=== PATIENT | female | born 1995 | race Caucasian/White ===

== ENCOUNTER 2022-04-20 06:44 | Inpatient (IN) | payer MEDICAID ==
[2022-04-20] MEDS ORDERED: Scopolamine 1.5 MG Transdermal Patch TOP SCH (07:30)
[2022-04-20] MEDS ORDERED: Dextrose 5%-Lactated Ringers 1,000 ML IV SCH (07:30)
[2022-04-20] MEDS ORDERED: Celecoxib 200 MG Cap PO ONE (07:30)
[2022-04-20] MEDS ORDERED: Acetaminophen 500 MG Tab PO ONE (07:30)
[2022-04-20] MEDS ORDERED: Propofol 200 MG/20 ML SDV ONE (07:36)
[2022-04-20] MEDS ORDERED: Succinylcholine 200 MG/10 ML MDV ONE (07:36)
[2022-04-20] MEDS ORDERED: Glycopyrrolate 0.2 MG/ML 5 ML MDV ONE (07:36)
[2022-04-20] MEDS ORDERED: Rocuronium 50 MG/5 ML Vial ONE ×2 (07:36→10:02)
[2022-04-20] MEDS ORDERED: Ondansetron 4 MG/2 ML SDV ONE (07:36)
[2022-04-20] MEDS ORDERED: Dexamethasone 4 MG/ML SDV ONE (07:36)
[2022-04-20] MEDS ORDERED: Neostigmine Methylsulfate 1 MG/ML 5 ML Syringe ONE (07:36)
[2022-04-20 07:38] LABS: ESTIMATED GFR 89 mL/min (>60)
[2022-04-20] MEDS ORDERED: cefOXitin 2 GM in Sodium Chloride 0.9% 50 ML IV ONE (08:30)
[2022-04-20] MEDS ORDERED: Ketamine 500 MG/5 ML MDV IV SCH (08:45)
[2022-04-20] MEDS ORDERED: Ketamine 19 MG in Sodium Chloride 0.9% 19.81 ML IV SCH (08:45)
[2022-04-20] MEDS ORDERED: cefOXitin 2 GM Vial ONE (09:33)
[2022-04-20] MEDS ORDERED: Bupivacaine 0.5%/EPINEPHrine 1:200,000 50 ML MDV ONE (09:33)
[2022-04-20] MEDS ORDERED: fentaNYL 250 MCG/5 ML SDV ONE (10:02)
[2022-04-20] MEDS ORDERED: Cyclobenzaprine 10 MG Tab PO PRN (13:35)
[2022-04-20] MEDS ORDERED: Metoclopramide 10 MG/2 ML SDV IVPUSH PRN (13:45)
[2022-04-20] MEDS ORDERED: diphenhydrAMINE 50 MG/ML SDV IVPUSH PRN (13:45)
[2022-04-20] MEDS ORDERED: Ondansetron 4 MG/2 ML SDV IVPUSH PRN (13:45)
[2022-04-20] MEDS ORDERED: HYDROmorphone 0.5 MG/0.5 ML Syringe IVPUSH PRN (13:45)
[2022-04-20] MEDS ORDERED: traMADol 50 MG Tab PO PRN (13:45)
[2022-04-20] MEDS ORDERED: Labetalol 20 MG/4 ML Syringe IVPUSH PRN (13:45)
[2022-04-20] MEDS ORDERED: Acetaminophen 500 MG Tab PO PRN (13:45)
[2022-04-20] MEDS ORDERED: HYDROmorphone 1 MG/ML Syringe IV PRN (13:45)
[2022-04-20] MEDS ORDERED: Albuterol/Ipratropium 3.0-0.5 MG/3 ML Neb Soln INH PRN (13:45)
[2022-04-20] MEDS: Dextrose 5%-Lactated Ringers 1,000 ML IV SCH ×2 (14:04→22:19)
[2022-04-20] MEDS: hydrOXYzine HCL 100 MG/2 ML SDV IM PRN (14:09)
[2022-04-20] MEDS: Albuterol/Ipratropium 3.0-0.5 MG/3 ML Neb Soln INH SCH ×2 (14:15→20:26)
[2022-04-20] MEDS: Acetaminophen 500 MG Tab PO SCH ×2 (14:28→21:18)
[2022-04-20] MEDS ORDERED: MVI, Adult with Vitamin K 10 ML, Thiamine 200 MG, Zinc/Copper/Manganese/Selenium 1 ML i... IV SCH ×4 (16:00)
[2022-04-20] MEDS ORDERED: Pantoprazole 40 MG Vial IVPUSH SCH (16:00)
[2022-04-20] MEDS: cefOXitin 2 GM in Sodium Chloride 0.9% 50 ML IV SCH ×2 (16:27→22:19)
[2022-04-20] MEDS: Heparin Sodium 5,000 Units/ML Vial SUBCUT SCH (17:40)
[2022-04-20] MEDS: oxyCODONE 5 MG Tab PO PRN (19:41)
[2022-04-21] MEDS: hydrOXYzine HCL 100 MG/2 ML SDV IM PRN (01:01)
[2022-04-21] MEDS ORDERED: Iopamidol 612 MG/ML 50 ML SDV PO STA (01:10)
[2022-04-21] MEDS: oxyCODONE 5 MG Tab PO PRN ×3 (01:42→20:01)
[2022-04-21] MEDS: cefOXitin 2 GM in Sodium Chloride 0.9% 50 ML IV SCH ×4 (04:37→22:40)
[2022-04-21] MEDS: Dextrose 5%-Lactated Ringers 1,000 ML IV SCH ×2 (04:41→13:51)
[2022-04-21] MEDS: Acetaminophen 500 MG Tab PO SCH ×3 (06:10→22:40)
[2022-04-21] MEDS: Heparin Sodium 5,000 Units/ML Vial SUBCUT SCH ×2 (06:10→18:18)
[2022-04-21] MEDS: Albuterol/Ipratropium 3.0-0.5 MG/3 ML Neb Soln INH SCH ×4 (07:23→20:03)
[2022-04-21] MEDS ORDERED: hydrOXYzine HCl 25 MG Tab PO PRN (07:44)
[2022-04-21] MEDS ORDERED: Ondansetron 4 MG Tab.DIS PO PRN (07:44)
[2022-04-21] MEDS: Celecoxib 200 MG Cap PO SCH ×2 (09:22→20:03)
[2022-04-21] MEDS: SCOPOLAMINE PATCH CHECK TOP SCH (09:22)
[2022-04-21] MEDS: Citalopram 20 MG Tab PO SCH (09:22)
[2022-04-21] MEDS ORDERED: MVI, Adult with Vitamin K 10 ML, Thiamine 200 MG, Zinc/Copper/Manganese/Selenium 1 ML i... IV SCH ×4 (16:00)
[2022-04-21] MEDS ORDERED: Pantoprazole 40 MG Delayed-Release Granules 1 Packet PO SCH (16:30)
[2022-04-22] MEDS: Dextrose 5%-Lactated Ringers 1,000 ML IV SCH (03:07)
[2022-04-22] MEDS: Heparin Sodium 5,000 Units/ML Vial SUBCUT SCH (06:02)
[2022-04-22] MEDS: Acetaminophen 500 MG Tab PO SCH (06:04)
[2022-04-22] MEDS: Albuterol/Ipratropium 3.0-0.5 MG/3 ML Neb Soln INH SCH (06:56)
[2022-04-22] MEDS ORDERED: Magnesium Hydroxide 400 MG/5 ML Susp 30 ML Cup PO PRN (07:14)
[2022-04-22] MEDS: Celecoxib 200 MG Cap PO SCH (08:21)
[2022-04-22] MEDS: Citalopram 20 MG Tab PO SCH (08:26)
[2022-04-22] MEDS: SCOPOLAMINE PATCH CHECK TOP SCH (08:47)
[2022-04-22] MEDS ORDERED: Cyanocobalamin (Vitamin B12) 1,000 MCG/ML SDV IM ONE (09:00)
== END 2022-04-22 09:50 | disposition home or self-care (01) | DRG 621 ==
LOC: JP.SDSSCHI 06:44 → JP.MS 12:00
PROVIDERS: ADMIT Surgery; ATTEND Surgery
PROC: 0D164ZA Bypass Stomach to Jejunum, Percutaneous Endoscopic Approach (ICD-10-PCS; principal; 2022-04-20)
PROC: 0FB24ZX Excision of Left Lobe Liver, Percutaneous Endoscopic Approach, Diagnostic (ICD-10-PCS; 2022-04-20)
PROC: 0BQT4ZZ Repair Diaphragm, Percutaneous Endoscopic Approach (ICD-10-PCS; 2022-04-20)
PROC: 0DB64ZZ Excision of Stomach, Percutaneous Endoscopic Approach (ICD-10-PCS; 2022-04-20)
DX: E66.01 Morbid (severe) obesity due to excess calories (principal); R16.0 Hepatomegaly, not elsewhere classified; K44.9 Diaphragmatic hernia without obstruction or gangrene; K31.9 Disease of stomach and duodenum, unspecified; Z68.43 Body mass index [BMI] 50.0-59.9, adult
CPT/HCPCS: 36415; 74240; 74240-26; 80053; 83735; 84100; 84703; 85025; 86850; 86900; 86901; 88307; 88313; 93005; 94640; A9270-GY; C9113; J0171; J0330; J0694; J1100; J1170; J1644; J2405; J2704; J2710; J2795; J3010; J3410; J3411; J3420; J3490; J7121; J7620; Q9967